=== PATIENT | female | born 1950 | race Two or more races ===

== ENCOUNTER 2024-06-12 17:49 | Emergency (ER) | payer OTHER ==
[~2024-06-12] VITALS: Ht 134.6 cm; Wt 59.0 kg
[2024-06-12] MEDS ORDERED: HYDRODIURIL12.5 MG PO (18:12)
[2024-06-12] MEDS ORDERED: NORVASC10 MG PO (18:12)
[2024-06-12] MEDS ORDERED: DIPHENHYDRAMINE HCL 50 MG/ML VIAL 1ML IM ONE (19:00)
[2024-06-12] MEDS ORDERED: METHYLPREDNISOLONE SOD SUCC 40 MG VIAL IM ONE (19:00)
[2024-06-12] MEDS ORDERED: DIPHENHYDRAMINE HCL 50 MG/ML VIAL 1ML ONE ×2 (19:43→20:11)
[2024-06-12] MEDS ORDERED: SUMATRIPTAN SUCCINATE 6 MG/0.5 ML VIAL SUBCUTANEO ONE (19:43)
[2024-06-12] MEDS ORDERED: METHYLPREDNISOLONE SOD SUCC 40 MG VIAL ONE (19:43)
[2024-06-12] MEDS ORDERED: WATER FOR INJ.,BACTERIOSTATIC 30 ML VIAL IJ ONE (19:49)
[2024-06-12 20:36] LABS: HEMOGLOBIN 13.6 g/dL (12.0-15.00); MEAN CORPUSCULAR HEMOGLOBIN 28.9 pg (27.00-32.0); MEAN CORPUSCULAR HGB CONC 33.2 g/dl (32.0-36.0); PLATELET COUNT 218 K/uL (150-450); RED BLOOD COUNT 4.71 M/uL (4.00-6.00); RED CELL DISTRIBUTION WIDTH 14.2 % (11.5-14.5)
== END 2024-06-12 21:27 | disposition home or self-care (01) ==
LOC: ER 17:50
PROVIDERS: General Practice
DX: R21 Rash and other nonspecific skin eruption (principal); Z20.822 Contact with and (suspected) exposure to COVID-19; I10 Essential (primary) hypertension; E03.8 Other specified hypothyroidism